=== PATIENT | female | born 1940 | race Caucasian/White ===

== ENCOUNTER 2017-03-22 21:01 | Emergency (ER) | payer MEDICARE, OTHER ==
[~2017-03-22] VITALS: Ht 170.2 cm; Wt 140.0 kg
[~2017-03-22 21:01] MED LIST: ALBU8.5H2 INHALATION; ASPI-973 PO; CA C1TAB83 PO; CEPH500C PO; CITA20TA PO; CLOB15OI2 TP; DESO15CR25 TOP; LOSA50TA37 PO; MINERALS PO; MOME13HF2 IH; MULT1CAP33 PO; PRAV40TA PO; TRAM50TA2 PO
[2017-03-22 21:41] VITALS: BP 95/65; PULSE 114; RESP 18; O2SAT 95
--- NOTE | 2017-03-22 22:08 | ED.REPORT ---
HPI-General Illness Date of Service Mar 22, 2017 ED Provider: Dr. Jaylan Raphael The patient is a 76 year old female with a pervious hx of sepsis and UTI who presents to the ED complaining of dysuria and urinary discomfort for the past day. Associated symptoms include confusion and slight diarrhea. Her reports that she has been acting slightly confused and "not herself." She denies cough, fever, shaking, chills, chest pain, nausea, and vomiting. Nursing Notes Stated Complaint: BLADDER INFECTION,PREVIOUS SEPSIS HISTORY Chief Complaint: Female Abdominal Pain Nursing Notes Reviewed: Yes Allergies: Coded Allergies: No Known Allergies (Unverified , 07/20/15) Scheduled ([minerals]) 1 TABLET PO BID Aspirin (Aspirin) 81 Mg Tablet 81 MG PO DAILY Ca Carbonate/Vitamin D3/Vit K (Calcium + D Soft Chewable Tab) 1 Each Tab.chew 1 EACH PO HS Cefuroxime Axetil (Cefuroxime) 500 Mg Tablet 500 MG PO BID Cephalexin (Cephalexin) 500 Mg Capsule 500 MG PO QID Citalopram Hydrobromide (Celexa) 20 Mg Tablet 40 MG PO DAILY Losartan Potassium (Losartan Potassium) 50 Mg Tablet 50 MG PO DAILY Mometasone/Formoterol (Dulera 100 Mcg/5 Mcg Inhaler) 13 Gm Hfa.aer.ad 1 PUFF IH BID Multivitamin (Multivitamins) 1 Each Capsule 1 EACH PO DAILY Pravastatin (Pravastatin) 40 Mg Tablet 40 MG PO DAILY Scheduled PRN Albuterol HFA (Proair HFA) 8.5 Gm Hfa.aer.ad 2 PUFFS INHALATION Q4H PRN PRN For Shortness of Breath Clobetasol Propionate (Clobetasol Propionate) 15 Gm Oint...g. 15 GM TP BID PRN PRN rash Desonide (Desonide Cream) 15 Gm Cream..g. 1 APPLIC TOP BID PRN PRN rash Tramadol (Tramadol) 50 Mg Tablet 50 MG PO Q8 HRS PRN PRN For Pain General Time Seen by MD: 22:07 Chief Complaint Other (dysuria) Hx Obtained From: Patient Arrived By: Walk-in Sudden in Onset?: Yes Past Medical History Past Medical History Pt denies: Hx of stroke and heart disease. Reports: Hyperlipidemia Reports: Depression Smoking History Former Smoker Social History Other Social History: Ambulatory Status Independent Review of Systems Full Review of Systems Constitutional: Denies: Chills, Fever Respiratory: Denies: Non-productive cough Cardiovascular: Denies: Chest pain GI: Reports: Diarrhea, Denies: Nausea, Vomiting Female: Reports: Dysuria Neurologic: Denies: Shaking Psychiatric: Reports: Confusion Complete sys rev & neg: except as marked. Physical Exam Vital Signs Vital Signs Date Time Temp Pulse Resp B/P Pulse Ox O2 Delivery O2 Flow Rate FiO2 03/23/17 01:48 36.8 87 16 118/72 99 Room Air 03/22/17 21:41 37.4 114 18 95/65 95 Room Air Initial VS: Reviewed General/Constitutional: Awake, Alert, Cooperative Head / Eyes: Atraumatic, Normocephalic ENT: Atraumatic, Mucous membranes moist Heart Rate / Rhythm: Positive: Tachycardia Abdomen: Atraumatic, Soft, Non-tender Upper Extremities Upper Extremity / MS: Atraumatic, Full range of motion, No deformity Wrist / Hand: Atraumatic, Full range of motion, No deformity Lower Extremity / Pelvis / MS: Atraumatic, Full range of motion, No deformity Ankle / Foot: Atraumatic, Full range of motion, No deformity Skin: Atraumatic, Color NL, No rash Neurologic: Oriented X3, Speech NL, No motor deficits Interpretation & Diagnostics Interpretation & Diagnostics: CHEST X-RAY IMPRESSION: no acute findings Lab Results Interpretation Result Diagram: 03/22/17222403/22/172224 Test 03/22/17 22:25 03/22/17 23:15 White Blood Count 13.2th/mm3 (3.8-10.1) Red Blood Count 4.14mil/mm3 (3.90-5.20) Hemoglobin 12.4g/dL (12.0-15.6) Hematocrit 37.6% (35.0-46.0) Mean Corpuscular Volume 90.8fL (81-100) Mean Corpuscular Hemoglobin 30.0pg (27.0-35.0) Mean Corpuscular Hemoglobin Concent 33.0% (32.0-37.0) Red Cell Distribution Width 12.5% (12.3-15.4) Platelet Count 267bil/L (150-400) Neutrophils (%) (Auto) 94.7% (40-74) Lymphocytes (%) (Auto) 1.1% (14-46) Monocytes (%) (Auto) 3.1% (4-12) Eosinophils (%) (Auto) 0.4% (0-5) Basophils (%) (Auto) 0.1% (0-3) Erythrocyte Sedimentation Rate 35mm/hr (0-40) Prothrombin Time 10.3sec (8.1-12.5) Prothromb Time International Ratio 0.96ratio Activated Partial Thromboplast Time 27.0sec (22.8-33.0) Sodium Level 137mEq/L (134-144) Potassium Level 3.7mEq/L (3.5-5.2) Chloride Level 96mEq/L (97-108) Carbon Dioxide Level 22mmol/L (18-29) Blood Urea Nitrogen 24mg/dL (8-27) Creatinine 0.82mg/dL (0.57-1.00) Estimat Glomerular Filtration Rate 98mL/min (>59) Glucose Level 156mg/dL (60-99) Lactic Acid Level 1.5mmol/L (0.4-2.0) Calcium Level 9.6mg/dL (8.5-10.1) Phosphorus Level 4.1mg/dL (2.5-4.9) Magnesium Level 1.7mg/dL (1.6-2.6) Total Bilirubin 0.5mg/dL (0.0-1.2) Aspartate Amino Transf (AST/SGOT) 22U/L (0-50) Alanine Aminotransferase (ALT/SGPT) 16U/L (0-32) Alkaline Phosphatase 51U/L (25-165) Pro-B-Type Natriuretic Peptide 304.6pg/mL (0-738) Total Protein 7.5g/dL (6.4-8.4) Albumin 4.5g/dL (3.4-5.0) Lipase 20U/L (13-60) Procalcitonin 1.53ng/mL (0.00-0.08) Urine Color Jasper (YELLOW) Urine Appearance Slightly cloudy Urine pH Color interference Urine Specific [place] 1.025 (1.003-1.035) Urine Protein Color interferencemg/dL Urine Glucose (UA) Color interferencemg/dL Urine Ketones Color interferencemg/dL Urine Occult Blood Color interference Urine Nitrite Color interference Urine Bilirubin Color interference Urine Urobilinogen Color interferencemg/dL Urine Leukocyte Esterase Color interference Urine RBC 3-10/hpf (0-2) Urine WBC 6-10/hpf (0-5) Urine Epithelial Cells Few/hpf (NONE-MOD) Urine Crystals None seen (NONE SEEN) Urine Bacteria Few/hpf (NONE-FEW) Urine Hyaline Casts None/lpf (NONE) Urine Granular Casts None seen (NONE SEEN) Urine Waxy Casts None seen (NONE SEEN) Urine Red Blood Cell Casts None seen (NONE SEEN) Urine White Blood Cell Casts None seen (NONE SEEN) Urine Mucus Present (None Seen) Urine Trichomonas None seen (NONE SEEN) Urine Yeast None (NONE SEEN) Urinalysis Comment None Urine Culture Reflexed Indicated ECG Interpretation Time: 22:26 Interpreted by: ED physician Rhythm / Conduction: Tachycardia (rate 107) Re-Eval/Medical Decision Med Decision/Clinical Course 76-year-old prior urosepsis presents with UTI inadequately treated with active friends on. No evidence of sepsis at this point with a normal lactate, benign labs generally, and stable vitals. She apparently was mildly disoriented driving but feels back to normal now. No other abnormal findings. Given Rocephin IV and Ceftin to follow. Discharge now stable condition with instructions to return promptly if worsening despite treatment. Time of Eval: 01:24 Patient Status: Pain improved Re-Evaluation/Progress Note: Pt rechecked. Fentanyl helped reduce her pain. Plan for discharge with follow up. She understands and agrees with plan. All questions addressed. Counseled Regarding: Diagnosis, Lab results, Need for follow-up, When/why to return to ED Discharge & Departure Primary Impression: Urinary tract infection Urinary tract infection type: site unspecified Hematuria presence: without hematuria Qualified Code: N39.0 - Urinary tract infection, site not specified Disposition: Home Discharge Condition All VS Reviewed: Yes Condition: Stable Additional Instructions: Thank you for entrusting us with your care today. Your chest x-ray and labs did not show any acute abnormalities. I am sending you home with a new antibiotic Ceftin. Take this 2x/day for the next 10 days. Follow up with your primary care physician in the next few days. Return to the Emergency Department if you experience any new or worsening symptoms including further signs of infection such as confusion, weakness, increased pain with urination, blood in your urine , fever, chills, or back pain. I hope you feel better soon! Referrals: Daquan Kennedy DO (PCP) Sherrill Attestation Portion of this note were transcribed by Diana King. I, Dr. Raphael, personally performed the history, physical exam, and medical decision-making: I reviewed and confirmed the accuracy for the information in the transcribed note. Signed by: sherrill Traylor, 03/22/17 1722 copies to: Daquan Kennedy Christopher W MD Mar 22, 2017 22:08 Diana King Mar 22, 2017 22:17
[2017-03-22] MEDS ORDERED: 0.9% Sodium Chloride 1,000 ML IV ONE (22:14)
[2017-03-22 22:35] LABS: BASOPHILS % (AUTO) 0.1 % (0-3); EOSINOPHILS % (AUTO) 0.4 % (0-5); MONOCYTES % (AUTO) 3.1 % (4-12); Mean Corpuscular Volume 90.8 fL (81-100); NEUTROPHILS % (AUTO) 94.7 % (40-74); Platelet Count 267 bil/L (150-400)
[2017-03-22 22:47] LABS: ERYTHROCYTE SEDIMENTATION RATE 35 mm/hr (0-40)
[2017-03-22 22:48] LABS: INR 0.96 ratio
[2017-03-22 23:14] LABS: Magnesium 1.7 mg/dL (1.6-2.6); Phosphorus 4.1 mg/dL (2.5-4.9)
[2017-03-22 23:29] LABS: APPEARANCE,URINE SLIGHTLY CLOUDY (CLEAR,HAZY); COLOR,URINE ORANGE (YELLOW)
[2017-03-22 23:30] LABS: OCCULT BLOOD,URINE COLOR INTERFERENCE (NEGATIVE); PH,URINE COLOR INTERFERENCE (5.0-8.0); UROBILINOGEN,URINE COLOR INTERFERENCE mg/dL (NORMAL)
[2017-03-22] MEDS ORDERED: cefTRIAXone Inj 2,000 MG in Dextrose 5% Minibag Plus 50 ML IV ONE (23:45)
[2017-03-23] MEDS ORDERED: fentaNYL-PF 50 mCg/mL 2 mL Inj IVPUSH PRN (00:40)
[2017-03-23] MEDS ORDERED: CEFU500T61 PO (01:35)
[2017-03-23 01:48] VITALS: BP 118/72; PULSE 87; RESP 16; O2SAT 99
--- NOTE | 2017-03-23 14:36 | DRSVH ---
PROCEDURE: X-RAY CHEST ONE VIEW, PORTABLE ([id number]) INDICATIONS: SHORTNESS OF BREATH TECHNIQUE: One view of the chest was acquired. COMPARISON: [facility], CR, XR CHEST 1VW (PORTABLE), 07/20/2015, 10:36. FINDINGS: Surgical changes and devices: None. Lungs and pleura: No pleural effusions or pneumothorax. Lungs are clear. Mediastinum: Mediastinal contours appear normal. Heart size is normal. Bones and chest wall: No suspicious bony lesions. Overlying soft tissues appear unremarkable. IMPRESSION: No acute cardiopulmonary disease. Dictated by: Kash Jack [facility] Interpreted: Rene Cm MD on 03/23/2017 at 8:30 Approved by: Rene Cm M.D. on 03/23/2017 at 14:34
== END 2017-03-23 01:49 | disposition home or self-care (01) ==
LOC: SED 21:01
DX: N39.0 Urinary tract infection, site not specified (principal); E78.5 Hyperlipidemia, unspecified; F32.9 Major depressive disorder, single episode, unspecified; I10 Essential (primary) hypertension; Z86.19 Personal history of other infectious and parasitic diseases; Z87.440 Personal history of urinary (tract) infections; Z87.891 Personal history of nicotine dependence; Z79.82 Long term (current) use of aspirin
CPT/HCPCS: 36415; 71010; 80053; 81000; 83605; 83690; 83735; 83880; 84100; 84145; 85025; 85610; 85651; 85730; 87040; 87086; 87088; 93005; 96361; 96365; 96375; 99285; J0696; J3010; J7030